=== PATIENT | male | born 1990 | race Caucasian/White ===

== ENCOUNTER 2017-10-13 20:12 | Emergency (ER) | payer SELFPAY ==
--- NOTE | 2017-10-13 21:14 | ED ---
Nevaeh Layne Gabriel, scribed for Joshua Fajardo MD on 10/13/17 at 2024 . Substance Abuse/Use - HPI Summary HPI Summary: This patient is a 26 year old M BIBA to [facility] after seizure activity following LSD use. The patient rates the pain 0/10 in severity. Symptoms alleviated spontaneously. Patient reports dehydration. Patient denies incontinence, tongue biting, and oral bleeding. The patient states his friends said he was on the floor sweating so they contacted EMS. On arrival EMS asked the patient if he would like to be taken to the hospital and he agreed because he was afraid and could feel himself sweating. Currently he states he is feeling better by the minute and is constantly regaining his composure. Pt states he ingests LSD occasionally about once every few months. Negative hx of seizures or other neurological disorders. - History Of Current Complaint Chief Complaint: EDSubstanceAbuse Stated Complaint: OVERDOSE Time Seen by Provider: 10/13/17 20:21 Hx Obtained From: Patient Onset/Duration of Drug/ETOH Abuse: Hours Ingestion History: Type/Name Of Drug - LSD Overdose Characteristics: Oral Timing Of Abuse: Intermittent Severity Initially: Moderate Severity Currently: Mild Character: Stuporous Associated Signs And Symptoms: Diaphoretic, Other: - decreased awareness - Allergies/Home Medications Allergies/Adverse Reactions: Allergies Allergy/AdvReac Type Severity Reaction Status Date / Time MS Penicillins [PCN] Allergy Unknown Verified 10/13/17 20:17 Reaction Details PMH/Surg Hx/FS Hx/Imm Hx Endocrine/Hematology History: Denies: Hx Sickle Cell Disease, Hx Thyroid Disease, Hx Coagulopothy Respiratory History: Reports: Hx Asthma, Hx Seasonal Allergies Sensory History: Denies: Hx Cataracts EENT History: Denies: Hx Deafness Neurological History: Denies: Hx CVA, Hx Dementia, Hx Nerve Disease, Hx Seizures Infectious Disease History: No Infectious Disease History: Denies: Traveled Outside the [place] in Last 30 Days - Family History Known Family History: Positive: Hypertension Negative: Renal Disease, Respiratory Disease, Seizure Disorder - Social History Occupation: Employed Full-time Lives: With Family Alcohol Use: Occasionally Substance Use Type: Reports: Marijuana, Synthetic Drugs Hx Tobacco Use: No Smoking Status (MU): Never Smoked Tobacco Review of Systems Positive: Skin Diaphoresis Neurological: Other - decreased awareness All Other Systems Reviewed And Are Negative: Yes Physical Exam - Summary Physical Exam Summary: VITAL SIGNS: Reviewed. GENERAL: Patient is a well-developed and nourished male who is lying comfortable in the stretcher. Patient is not in any acute respiratory distress. HEAD AND FACE: No signs of trauma. No ecchymosis, hematomas or skull depressions. No sinus tenderness. EYES: PERRLA, EOMI x 2, No injected conjunctiva, no nystagmus. EARS: Hearing grossly intact. Ear canals and tympanic membranes are within normal limits. MOUTH: Oropharynx within normal limits. NECK: Supple, trachea is midline, no adenopathy, no JVD, no carotid bruit, no c- spine tenderness, neck with full ROM. CHEST: Symmetric, no tenderness at palpation LUNGS: Clear to auscultation bilaterally. No wheezing or crackles. CVS: Regular rate and rhythm, S1 and S2 present, no murmurs or gallops appreciated. ABDOMEN: Soft, non-tender. No signs of distention. No rebound no guarding, and no masses palpated. Bowel sounds are normal. EXTREMITIES: FROM in all major joints, no edema, no cyanosis or clubbing. NEURO: Alert and oriented x 3. No acute neurological deficits. Speech is normal and follows commands. SKIN: Dry and warm Triage Information Reviewed: Yes Vital Signs On Initial Exam: Initial Vitals Temp Pulse Resp BP Pulse Ox 96.6 F 101 12 139/72 99 10/13/17 20:16 10/13/17 20:16 10/13/17 20:16 10/13/17 20:16 10/13/17 20:16 Vital Signs Reviewed: Yes Diagnostics - Vital Signs Vital Signs Temp Pulse Resp BP Pulse Ox 10/13/17 20:16 96.6 F 101 12 139/72 99 - Laboratory Lab Statement: Any lab studies that have been ordered have been reviewed, and results considered in the medical decision making process. Course/Dx - Course Assessment/Plan: This patient is a 26 year old M BIBA to [facility] after seizure activity following LSD use. The patient rates the pain 0/10 in severity. Symptoms alleviated spontaneously. Patient reports dehydration. Patient denies incontinence, tongue biting, and oral bleeding. The patient states his friends said he was on the floor sweating so they contacted EMS. On arrival EMS asked the patient if he would like to be taken to the hospital and he agreed because he was afraid and could feel himself sweating. Currently he states he is feeling better by the minute and is constantly regaining his composure. Pt states he ingests LSD occasionally about once every few months. Negative hx of seizures or other neurological disorders. I highly doubt the patient had a seizure do to the lack of a postictal period, mouth biting, incontinence, and history. As well as the fact that he remembers the whole episode and was able to hear and speak to EMS. Dx substance abuse. Patient will be discharged with follow up from [facility] referral center. The patient is agreeable with this plan. - Diagnoses Provider Diagnoses: Substance abuse Discharge - Discharge Plan Condition: Stable Disposition: HOME Patient Education Materials: Polysubstance Abuse (ED) Referrals: [facility]YS[facility]IAN REFERRAL [Outside] - 3 Days Additional Instructions: RETURN TO EMERGENCY DEPARTMENT FOR ANY NEW OR WORSENING SYMPTOMS The documentation as recorded by the Nevaeh chaudhari Gabriel accurately reflects the service I personally performed and the decisions made by me, Joshua Fajardo MD.
[2017-10-13 21:27] VITALS: BP 139/83
== END 2017-10-13 21:23 | disposition home or self-care (01) ==
LOC: ED 20:12
DX: F19.10 Other psychoactive substance abuse, uncomplicated (principal)
CPT/HCPCS: 99281